=== PATIENT | female | born 1980 | race Asian ===

== ENCOUNTER 2017-04-28 17:41 | Inpatient (IN) | payer OTHER ==
[~2017-04-28] VITALS: Ht 160 cm; Wt 84.8 kg
[2017-04-28] MEDS ORDERED: PREN-380 PO (18:26)
[2017-04-28] MEDS ORDERED: CARBOPROST 250 MCG/ML AMP IM PRN (18:30)
[2017-04-28] MEDS ORDERED: METHYLERGONOVINE 0.2 MG/ML AMP IM PRN (18:30)
[2017-04-28] MEDS ORDERED: OXYTOCIN 10 UNITS/ML VIAL IM SCH (18:30)
[2017-04-28] MEDS ORDERED: NALBUPHINE HYDROCHLORIDE 10 MG/ML VIAL IVP PRN (18:30)
[2017-04-28] MEDS ORDERED: PROMETHAZINE 25 MG/ML VIAL IVP PRN (18:30)
[2017-04-28 18:43] VITALS: BP 117/70
[2017-04-28 19:24] LABS: BASOPHILS # (AUTO) 0.1 K/uL (0.00-0.22); BASOPHILS % (AUTO) 1.5 % (0.0-2.0); EOSINOPHILS # (AUTO) 0.1 K/uL (0-0.4); EOSINOPHILS % (AUTO) 0.8 % (0.0-4.0); HEMATOCRIT 39.5 % (36-48); HEMOGLOBIN 13.4 g/dL (12.0-16.0); LYMPHOCYTES # (AUTO) 0.9 K/uL (2.5-16.5); LYMPHOCYTES % (AUTO) 13.8 % (20.5-51.1); MEAN CORPUSCULAR HEMOGLOBIN 31 pg (27-31); MEAN CORPUSCULAR HGB CONC 34 g/dL (33-37); MEAN CORPUSCULAR VOLUME 91 fL (80-94); MONOCYTES # (AUTO) 0.4 K/uL (0.8-1.0); MONOCYTES % (AUTO) 5.4 % (1.7-9.3); NEUTROPHILS # (AUTO) 5.2 K/uL (1.8-7.7); NEUTROPHILS % (AUTO) 78.5 % (42.2-75.2); PLATELET COUNT (AUTO) 165 K/uL (140-450); RED BLOOD CELL COUNT(AUTO) 4.35 MIL/uL (4.20-5.40); RED CELL DISTRIBUTION WIDTH 12.9 % (11.6-13.7); WHITE BLOOD COUNT (AUTO) 6.7 K/uL (4.8-10.8)
[2017-04-28 19:34] LABS: BILIRUBIN,URINE NEGATIVE (NEGATIVE); BLOOD, URINE NEGATIVE (NEGATIVE); COLOR,URINE YELLOW (YELLOW); LEUKOCYTE ESTERASE ,URINE NEGATIVE (NEGATIVE); NITRITE, URINE NEGATIVE (NEGATIVE); PROTEIN,URINE NEGATIVE (NEGATIVE); UGLUCOSE NEGATIVE (NEGATIVE); UROBILINOGEN,URINE 0.2 EU/dL (0.2 - 1)
[2017-04-28 19:35] LABS: APPEARANCE,URINE SLIGHTLY HAZY (CLEAR)
[2017-04-28 19:37] LABS: ANION GAP 17.1 (8-16); CALCIUM 8.9 mg/dL (8.5-10.1); CARBON DIOXIDE 17.7 mmol/L (21-32); CREATININE 1.2 mg/dL (0.6-1.3); POTASSIUM 3.8 mmol/L (3.5-5.1)
[2017-04-28 19:43] LABS: ALBUMIN 2.6 g/dL (3.4-5.0); TOTAL BILIRUBIN 0.3 mg/dL (0.0-1.0); TOTAL PROTEIN, SERUM 6.4 g/dL (6.4-8.2)
[2017-04-28] MEDS: LACTATED RINGERS 1,000 ML IV SCH (20:00)
[2017-04-28] MEDS ORDERED: MISOPROSTOL 25 MCG TAB VG SCH (20:00)
[2017-04-28] MEDS ORDERED: MISOPROSTOL 25 MCG TAB ONE ×2 (20:13→23:56)
[2017-04-28] MEDS ORDERED: OXYTOCIN 20 UNITS/LR PREMIX 1,000 ML IV SCH (23:30)
[2017-04-29] MEDS ORDERED: ROPIVACAINE 0.2%/NS PREMIX 250 ML EPI ONE (02:01)
[2017-04-29] MEDS: LACTATED RINGERS 1,000 ML IV SCH ×3 (02:30→03:45)
[2017-04-29] MEDS ORDERED: ROPIVACAINE 0.2%/NS PREMIX 250 ML EPI SCH (02:45)
[2017-04-29] MEDS ORDERED: OXYTOCIN 20 UNITS/LR PREMIX 1,000 ML IV ONE (03:40)
--- NOTE | 2017-04-29 06:52 | NUR ---
PATIENT HAS BEEN SCREENED AND CATEGORIZED LOW NUTRITION RISK. PATIENT WILL BE SEEN WITHIN 7 DAYS OF ADMISSION. 05/04/17 LUIS PONCE MS, RDN
[2017-04-29] MEDS ORDERED: OXYTOCIN 10 UNITS/ML VIAL ONE (07:59)
[2017-04-29] MEDS ORDERED: WITCH HAZEL 40 PAD PACKAGE TP PRN (11:30)
[2017-04-29] MEDS ORDERED: MEASLES, MUMPS, AND RUBELLA 1 VIAL SQVAC PRN (11:30)
[2017-04-29] MEDS ORDERED: HYDROcodone/APAP 5/325 MG 1 TAB TAB PO PRN (11:30)
[2017-04-29] MEDS ORDERED: TEMAZEPAM 15 MG CAP PO PRN (11:30)
[2017-04-29] MEDS ORDERED: oxyCODONE/APAP 5/325 MG 1 TAB TAB PO PRN (11:30)
[2017-04-29] MEDS ORDERED: SODIUM PHOSPHATE 118 ML ENEM RC PRN (11:30)
[2017-04-29] MEDS ORDERED: BENZOCAINE/MENTHOL 20%-0.5% 60 GM CAN TP PRN (11:30)
[2017-04-29] MEDS ORDERED: CARBOPROST 250 MCG/ML AMP IM PRN (11:36)
[2017-04-29] MEDS: IBUPROFEN 800 MG TAB PO PRN (19:54)
[2017-04-29] MEDS ORDERED: DOCUSATE SOD/SENNA 50/8.6 MG 1 TAB PO SCH (21:00)
[2017-04-30 05:57] LABS: HEMOGLOBIN 11.1 g/dL (12.0-16.0)
[2017-04-30] MEDS: IBUPROFEN 800 MG TAB PO PRN ×2 (12:11→19:36)
[2017-05-01] MEDS ORDERED: IBUP-2213 PO ×2 (09:13→09:28)
[2017-05-01] MEDS ORDERED: CEPH250C16 PO (09:32)
[2017-05-01] MEDS ORDERED: PERI PO (09:32)
== END 2017-05-01 12:15 | disposition home or self-care (01) | DRG 775 ==
LOC: MFCC 17:41
PROVIDERS: ADMIT Obstetrics & Gynecology; ATTEND Obstetrics & Gynecology
PROC: 10E0XZZ Delivery of Products of Conception, External Approach (ICD-10-PCS; 2017-04-28)
PROC: 0KQM0ZZ Repair Perineum Muscle, Open Approach (ICD-10-PCS; 2017-04-28)
PROC: 00HU33Z Insertion of Infusion Device into Spinal Canal, Percutaneous Approach (ICD-10-PCS; 2017-04-28)
PROC: 3E0R3CZ (ICD-10-PCS; 2017-04-28)
PROC: 3E0234Z Introduction of Serum, Toxoid and Vaccine into Muscle, Percutaneous Approach (ICD-10-PCS; principal; 2017-04-29)
DX: O69.1XX0 Labor and delivery complicated by cord around neck, with compression, not applicable or unspecified (principal); O70.1 Second degree perineal laceration during delivery; Z37.0 Single live birth; Z3A.40 40 weeks gestation of pregnancy; Z23 Encounter for immunization
CPT/HCPCS: 36415; 51702; 59200; 59409; 80053; 81003; 85018; 85025; 86592; 86886; 86900; 86901; 90715; J2590; J2795; J7120